=== PATIENT | female | born 1985 | race Caucasian/White ===

== ENCOUNTER 2017-07-14 13:51 | Emergency (ER) | payer BC, MEDICAID ==
[~2017-07-14] VITALS: Ht 162.6 cm; Wt 69.6 kg
[2017-07-14 13:54] VITALS: BP 115/76
[2017-07-14] MEDS ORDERED: IBUPROFEN 200 MG TABLET ONE (14:23)
[2017-07-14] MEDS ORDERED: IBUPROFEN 200 MG TABLET PO ONE (14:30)
== END 2017-07-14 14:46 | disposition home or self-care (01) ==
LOC: ED 14:40
DX: K04.7 Periapical abscess without sinus (principal); Z87.01 Personal history of pneumonia (recurrent)
CPT/HCPCS: 99283

== ENCOUNTER 2017-10-25 10:36 | Emergency (ER) | payer MEDICAID ==
[~2017-10-25] VITALS: Ht 162.6 cm; Wt 72.9 kg
[2017-10-25 10:43] VITALS: BP 116/77
== END 2017-10-25 11:39 | disposition home or self-care (01) ==
LOC: ED 11:37
DX: K02.9 Dental caries, unspecified (principal)
CPT/HCPCS: 99283

== ENCOUNTER 2018-04-11 15:42 | Emergency (ER) | payer MEDICAID ==
[~2018-04-11] VITALS: Ht 160 cm; Wt 75.8 kg
[2018-04-11 15:47] VITALS: BP 132/67
== END 2018-04-11 17:02 | disposition home or self-care (01) ==
LOC: ED 17:01
DX: K02.9 Dental caries, unspecified (principal)
CPT/HCPCS: 99283

== ENCOUNTER 2019-01-05 04:34 | Emergency (ER) | payer MEDICAID ==
[~2019-01-05] VITALS: Ht 160 cm; Wt 74.0 kg
[2019-01-05 04:36] VITALS: BP 137/84
--- NOTE | 2019-01-05 04:50 | NUR ---
PT PRESENTS REQUESTING REFERRAL FOR HER CARPAL TUNNEL. STATES NO ONE WILL SEE HER WITHOUT A REFERRAL. C/O PAIN TO BILAT WRISTS WITH SOME TINGLING--THIS IS BASELINE FOR HER. NO OTHER COMPLAINTS OR NEEDS EXPRESSED. CALL LIGHT IN REACH. AWAITING ERP EVAL.
== END 2019-01-05 05:21 | disposition home or self-care (01) ==
LOC: ED 05:15
DX: M77.9 Enthesopathy, unspecified (principal); F17.210 Nicotine dependence, cigarettes, uncomplicated; Z88.0 Allergy status to penicillin
CPT/HCPCS: 29260; 99283

== ENCOUNTER 2020-04-04 09:13 | Emergency (ER) | payer MEDICAID ==
[~2020-04-04] VITALS: Ht 160 cm; Wt 74.5 kg
--- NOTE | 2020-04-04 09:23 | NUR ---
TO ROOM AT THIS TIME
[2020-04-04] MEDS ORDERED: SODIUM CHLORIDE FLUSH 10ML SYR IVF ONE (10:00)
[2020-04-04] MEDS ORDERED: KETOROLAC 30 MG/1 ML IVPush ONE (10:00)
[2020-04-04] MEDS ORDERED: SODIUM CHLORIDE 0.9% 1,000ML IVBOLUS ONE (10:00)
[2020-04-04] MEDS ORDERED: KETOROLAC 30 MG/1 ML ONE (10:04)
[2020-04-04 10:08] LABS: BASOPHILS # (AUTO) 0.02 x10^3/uL (0-0.1); BASOPHILS % (AUTO) 0 % (0-1); EOSINOPHILS # (AUTO) 0.25 x10^3/uL (0-0.4); EOSINOPHILS % (AUTO) 3 % (1-7); LYMPHOCYTES # (AUTO) 1.38 x10^3/uL (1-3.4); LYMPHOCYTES % (AUTO) 18 % (22-44); MD NO; MEAN CORPUSCULAR HEMOGLOBIN 31.4 pg (27.0-34.8); MEAN CORPUSCULAR HGB CONC 32.7 g/dL (32.4-35.8); MEAN CORPUSCULAR VOLUME 96.1 fL (80-100); MEAN PLATELET VOLUME 8.6 fL (7.4-10.4); MONOCYTES # (AUTO) 0.71 x10^3/uL (0.2-0.8); MONOCYTES % (AUTO) 9 % (2-9); NEUTROPHILS # (AUTO) 5.37 x10^3/uL (1.8-6.8); NEUTROPHILS % (AUTO) 69 % (42-75); PLATELET COUNT 286 x10^3/uL (130-400); RED CELL DISTRIBUTION WIDTH 12.2 % (9.6-15.2)
--- NOTE | 2020-04-04 10:17 | NUR ---
PT BACK FROM XRAY. PT PLACED ON ALL ROOM MONITORING. IV PLACED, NS BOLUS INFUSING, PT MEDICATED FOR 5-8/10 STERNAL CP. VS UPDATED IN COMPUTER. PT AND FAMILY UPDATED ON POC. CALL LIGHT WITHIN REACH, WARM BLANKET PROVIDED.
[2020-04-04 10:19] LABS: ALANINE AMINOTRANSFERASE 27 U/L (12-78); ALBUMIN 3.5 g/dL (3.4-5.0); ANION GAP 5 mmol/L (5-15); CALCIUM 8.7 mg/dL (8.5-10.1); CHLORIDE 109 mmol/L (98-107)
[2020-04-04 10:21] LABS: ALKALINE PHOSPHATASE 100 U/L (45-117); BILIRUBIN,TOTAL 0.3 mg/dL (0.2-1.0); TOTAL PROTEIN 7.4 g/dL (6.4-8.2)
--- NOTE | 2020-04-04 10:50 | NUR ---
ALL RESULTS BACK,PT FOR RECHECK
--- NOTE | 2020-04-04 11:50 | NUR ---
INCENTIVE SPIROMETER GIVEN FOR DISCHARGE. PT AMBULATES OUT TO D/C DESK. PAIN DECREASED TO 4/10.
[2020-04-04 11:51] VITALS: BP 114/61
== END 2020-04-04 11:53 | disposition home or self-care (01) ==
LOC: ED 10:26
DX: G89.11 Acute pain due to trauma (principal); M94.0 Chondrocostal junction syndrome [Tietze]; R07.89 Other chest pain; W11.XXXA Fall on and from ladder, initial encounter; Y93.89 Activity, other specified; Y92.009 Unspecified place in unspecified non-institutional (private) residence as the place of occurrence of the external cause; Y99.8 Other external cause status
CPT/HCPCS: 36415; 71046; 80053; 85025; 93005; 96361; 96374; 99285; J1885; J7030